=== PATIENT | male | born 1955 | race American Indian/Alaskan Native ===

== ENCOUNTER 2019-09-30 11:22 | Emergency (ER) | payer SELFPAY ==
--- NOTE | 2019-09-30 11:33 | Event Note ---
ED Screening Note Date of service: 09/30/19 Time: 11:31 ED Screening Note: Pt here complaining that Do bit him at 1105 this a.m to 3rd and 4th of left hand. Pain 08/12. TD not UTD. No poloice or animal control called. This is the patient brothers dog an brother confirmed via phone that dog is UTD on vaccination including rabies PE: EXT left third finger distally with macerated wound, deep and nail missing. Left 4th digit finger distally with wound superficial. No overt FB seen A: Dog bite with open wound This initial assessment/diagnostic orders/clinical plan/treatment(s) is/are subject to change based on patients health status, clinical progression and re- assessment by fellow clinical providers in the ED. Further treatment and workup at subsequent clinical providers discretion. Patient/guardian urged not to elope from the ED as their condition may be serious if not clinically assessed and managed. Initial orders include: XR ,TD wound care. animal control to be contacted
[2019-09-30] MEDS ORDERED: TETANUS,DIPH,PERTUSS(ACELL) VACCINE 0.5 ML SYRINGE IM ONE (11:34)
--- NOTE | 2019-09-30 12:09 | XRay Report ---
Left hand-3 views INDICATION: Deep dog bite to 3rd finger. 4th finger. COMPARISON: None. IMPRESSION: Deep irregular soft tissue laceration at the tip of the long finger with associated soft tissue swelling. The tip of the distal phalanx appears to be exposed. No acute fracture. Mild DJD th roughout the IP and MCP joints. Signer Name: Rod Bran MD Signed: 09/30/2019 12:05 PM Workstation Name: [id number]
[2019-09-30] MEDS ORDERED: MORPHINE 2 MG/1 ML INJ IM ONE (12:18)
--- NOTE | 2019-09-30 12:27 | Emergency Department Report ---
ED Animal Bite HPI - General Chief Complaint: Animal Bite Stated Complaint: DOG BITE/FINGER Time Seen by Provider: 09/30/19 11:31 Source: patient Mode of arrival: Ambulatory Limitations: No Limitations - History of Present Illness Initial Comments: 64-year-old male, history of hypertension, presents to ED following a dog bite to left hand. Patient states his brother's dog, a pit bull mix bit him on the left hand, resulting in an avulsion of the fingertip of the left middle finger. Patient states he reached down to pet the dog and the dog bit him. Patient states brother reported that the dog's immunizations are up-to-date. Complaint: animal bite -: This morning Left: Hand Animal: dog Animal Control Notified: No Description: household pet, immunizations UTD Mechanism: bite Pain Description: constant Context: other (reached down to pet the dog) Associated Symptoms: bleeding Treatments Prior to Arrival: pressure - Related Data Patient Tetanus UTD: No Previous Rx's Medication Instructions Recorded Last Taken Type Amoxicillin/Potassium Clav 1 each PO BID 7 Days #14 tablet 09/30/19 Unknown Rx [Augmentin 875-125 Tablet] HYDROcodone/APAP 5-325 [[place] 1 each PO Q6HR PRN #10 tablet 09/30/19 Unknown Rx 5/325] Allergies Allergy/AdvReac Type Severity Reaction Status Date / Time No Known Allergies Allergy Unverified 09/30/19 11:26 ED Review of Systems ROS: Stated complaint: DOG BITE/FINGER Other details as noted in HPI Comment: All other systems reviewed and negative Constitutional: denies: chills, fever Musculoskeletal: as per HPI Neurological: denies: numbness ED Past Medical Hx - Past Medical History Previous Medical History?: Yes Hx Hypertension: Yes - Surgical History Past Surgical History?: No - Social History Smoking Status: Current Every Day Smoker - Medications Home Medications: Home Medications Medication Instructions Recorded Confirmed Last Taken Type Amoxicillin/Potassium Clav 1 each PO BID 7 Days #14 tablet 09/30/19 Unknown Rx [Augmentin 875-125 Tablet] HYDROcodone/APAP 5-325 [[place] 1 each PO Q6HR PRN #10 tablet 09/30/19 Unknown Rx 5/325] ED Physical Exam - General Limitations: No Limitations General appearance: alert, in no apparent distress - Head Head exam: Present: atraumatic, normocephalic - Eye Eye exam: Present: normal appearance - ENT ENT exam: Present: mucous membranes moist - Neck Neck exam: Present: normal inspection - Respiratory Respiratory exam: Present: normal lung sounds bilaterally. Absent: respiratory distress - Cardiovascular Cardiovascular Exam: Present: normal rhythm, tachycardia - GI/Abdominal GI/Abdominal exam: Absent: distended - Extremities Exam Extremities exam: Present: other (avulsion of distal tip of left middle finger, including nail bed, able to flex and extend at the DIP and PIP; no active bleeding; superficial laceration of left 4th finger) - Neurological Exam Neurological exam: Present: alert, oriented X3. Absent: motor sensory deficit - Psychiatric Psychiatric exam: Present: normal affect, normal mood ED Course Vital Signs 09/30/19 09/30/19 11:27 13:52 Temperature 97.7 F 97.9 F Pulse Rate 106 H 77 Respiratory 18 17 Rate Blood Pressure 135/90 Blood Pressure 130/90 [Right] O2 Sat by Pulse 100 Oximetry - Reevaluation(s) Reevaluation #1: 09/30/19 12:09 64-year-old male with dog bite to left hand resulting in left middle finger fingertip avulsion. Finger was irrigated with normal saline and Betadine. X eroform gauze applied, followed by dry gauze and finger splint. Patient given follow-up information for ortho and plastic surgery. Tetanus given here in ED. Patient given prescription for Augmentin and pain medication. Return precautions given. Critical care attestation.: If time is entered above; I have spent that time in minutes in the direct care of this critically ill patient, excluding procedure time. ED Disposition Clinical Impression: Dog bite, Fingertip avulsion Disposition: [id number] TO HOME OR SELFCARE Is pt being admited?: No Condition: Stable Instructions: Animal Bite (ED), Skin Avulsion (ED) Prescriptions: Amoxicillin/Potassium Clav [Augmentin 875-125 Tablet] 1 each PO BID 7 Days #14 tablet HYDROcodone/APAP 5-325 [[place] 5/325] 1 each PO Q6HR PRN #10 tablet PRN Reason: Pain Referrals: BOLIVAR KINNEY MD [Staff Physician] - 3-5 Days PRIMARY CARE, [Referring] - 3-5 Days STEPHANY BALDERRAMA MD [Staff Physician] - 3-5 Days BURAK FLEMING MD [Staff Physician] - 3-5 Days WORK,SALAZAR Delong JR, MD [Staff Physician] - 3-5 Days
[2019-09-30 13:53] VITALS: BP 130/90
== END 2019-09-30 13:55 | disposition home or self-care (01) ==
LOC: ED 11:22
DX: S61.303A Unspecified open wound of left middle finger with damage to nail, initial encounter (principal); S61.452A Open bite of left hand, initial encounter; F17.200 Nicotine dependence, unspecified, uncomplicated; I10 Essential (primary) hypertension; W54.0XXA Bitten by dog, initial encounter; Y93.89 Activity, other specified; Y92.89 Other specified places as the place of occurrence of the external cause; Y99.8 Other external cause status
CPT/HCPCS: 29130; 73130; 90471; 90715; 96372; 99283; J2270

== ENCOUNTER 2019-10-17 12:43 | Emergency (ER) | payer SELFPAY ==
--- NOTE | 2019-10-17 12:56 | Event Note ---
ED Screening Note Date of service: 10/17/19 Time: 12:55 ED Screening Note: This is a 64 y.o. M. that presents to the ER with pain to left 3rd distal finger from dog bite 3 weeks ago. Patient states he attempt to follow up with Orthopedic surgeon and unsuccessful. This initial assessment/diagnostic orders/clinical plan/treatment(s) is/are subject to change based on patients health status, clinical progression and re- assessment by fellow clinical providers in the ED. Further treatment and workup at subsequent clinical providers discretion. Patient/guardian urged not to elope from the ED as their condition may be serious if not clinically assessed and managed. Initial orders include:
[2019-10-17 13:01] VITALS: BP 120/82
--- NOTE | 2019-10-17 15:40 | Emergency Department Report ---
ED Recheck HPI - General Chief Complaint: Animal Bite Stated Complaint: ANIMAL BITE Time Seen by Provider: 10/17/19 12:54 Source: patient Mode of arrival: Ambulatory Limitations: No Limitations - History of Present Illness Initial Comments: This is a 64-year-old male nontoxic, well nourished in appearance, no acute signs of distress presents to the ED for wound check. Patient was seen last month for a dog bite to index finger, left. Stated dog is UTD with all vaccines. Patient denies any pus or drainage. Stated has taken all antibiotics as prescribed. Denies any follow-up. Patient denies any fever, chills, nausea, vomiting, chest pain, shortness of breath, headache or stiff neck. Patient denies any allergies or significant past medical history. MD Complaint: wound re-check -: month(s) (1) Initial Visit For: animal bite Returns Today for: wound recheck Symptoms Since Prior Visit: no new symptoms Associated Symptoms: none. denies: fever, chills, chest pain, shortness of breath, rash, malaise, nasuea, abdominal pain - Related Data Previous Rx's Medication Instructions Recorded Last Taken Type Amoxicillin/Potassium Clav 1 each PO BID 7 Days #14 tablet 09/30/19 Unknown Rx [Augmentin 875-125 Tablet] HYDROcodone/APAP 5-325 [[place] 1 each PO Q6HR PRN #10 tablet 09/30/19 Unknown Rx 5/325] Allergies Allergy/AdvReac Type Severity Reaction Status Date / Time No Known Allergies Allergy Verified 10/17/19 12:48 ED Review of Systems ROS: Stated complaint: ANIMAL BITE Other details as noted in HPI Constitutional: denies: chills, fever Eyes: denies: eye pain, eye discharge, vision change ENT: denies: ear pain, throat pain Respiratory: denies: cough, shortness of breath, wheezing Cardiovascular: denies: chest pain, palpitations Endocrine: no symptoms reported Gastrointestinal: denies: abdominal pain, nausea, diarrhea Genitourinary: denies: urgency, dysuria Musculoskeletal: denies: back pain, joint swelling, arthralgia Skin: denies: rash, lesions Neurological: denies: headache, weakness, paresthesias Psychiatric: denies: anxiety, depression Hematological/Lymphatic: denies: easy bleeding, easy bruising ED Past Medical Hx - Past Medical History Previous Medical History?: Yes Hx Hypertension: Yes - Surgical History Past Surgical History?: No - Social History Smoking Status: Current Every Day Smoker Substance Use Type: None - Medications Home Medications: Home Medications Medication Instructions Recorded Confirmed Last Taken Type Amoxicillin/Potassium Clav 1 each PO BID 7 Days #14 tablet 09/30/19 Unknown Rx [Augmentin 875-125 Tablet] HYDROcodone/APAP 5-325 [[place] 1 each PO Q6HR PRN #10 tablet 09/30/19 Unknown Rx 5/325] ED Physical Exam - General Limitations: No Limitations General appearance: alert, in no apparent distress - Head Head exam: Present: atraumatic, normocephalic - Neck Neck exam: Present: normal inspection, full ROM. Absent: lymphadenopathy - Extremities Exam Extremities exam: Present: other (left index finger fingertip avulsion. No surrounding cellulitis or pus noted. Well-healing. No swelling.). Absent: tenderness - Back Exam Back exam: Present: full ROM - Neurological Exam Neurological exam: Present: alert, oriented X3 - Psychiatric Psychiatric exam: Present: normal affect, normal mood - Skin Skin exam: Present: warm, dry, intact, normal color. Absent: rash ED Course Vital Signs 10/17/19 12:55 Temperature 98 F Pulse Rate 94 H Respiratory 18 Rate Blood Pressure 120/82 O2 Sat by Pulse 98 Oximetry - Reevaluation(s) Reevaluation #1: 10/17/19 15:43 Patient is speaking in full sentences with no signs of distress noted. ED Recheck MDM - Medical Decision Making 64-year-old male that presents with a wound recheck. Patient is stable and was examined by me. The area has been properly clean any new sterile dressing has been applied. Patient was educated on proper wound care. Patient was instructed to Follow-up with a orthopedic doctor in 3-5 days or if symptoms worsen and continue return to emergency room as soon as possible. At time of discharge, the patient does not seem toxic or ill in appearance. No acute signs of distress noted. Patient agrees to discharge treatment plan of care. No further questions noted by the patient. Critical care attestation.: If time is entered above; I have spent that time in minutes in the direct care of this critically ill patient, excluding procedure time. ED Disposition Clinical Impression: Encounter for wound re-check Disposition: TO HOME OR SELFCARE Is pt being admited?: No Does the pt Need Aspirin: No Condition: Stable Instructions: Acute Wound Care (ED) Additional Instructions: Follow-up with a Orthopedic doctor in 3-5 days or if symptoms worsen and continue return to emergency room as soon as possible. Referrals: PRIMARY CARE, [Primary Care Provider] - 3-5 Days BOLIVAR KINNYE MD [Staff Physician] - 3-5 Days CRISTOPHER FELTON MD [Staff Physician] - 3-5 Days [facility] [Outside] - 3-5 Days
== END 2019-10-17 16:15 | disposition home or self-care (01) ==
LOC: ED 12:43
DX: Z48.01 Encounter for change or removal of surgical wound dressing (principal); I10 Essential (primary) hypertension; F17.200 Nicotine dependence, unspecified, uncomplicated